=== PATIENT | female | born 1965 | race Caucasian/White ===

== ENCOUNTER → 2020-05-28 | Outpatient (CLI) | payer OTHER ==
[~2020-05-28] MED LIST: AMARYL2 M1 PO; METFORMIN HCL1000 MG PO; ONGLYZA5 MG PO; ZESTORETIC 10-1 EACH PO; ZOLOFT50 M1 PO
== END ==
LOC: LAB 10:57
PROVIDERS: ATTEND Specialist
DX: Z01.812 Encounter for preprocedural laboratory examination (principal); Z20.822 Contact with and (suspected) exposure to COVID-19

== ENCOUNTER → 2020-05-31 | Outpatient (CLI) | payer OTHER ==
[~2020-05-31] VITALS: Ht 170.2 cm; Wt 145.2 kg
--- NOTE | 2020-06-02 14:04 | P ---
[facility] [address] [place] [address] PROCEDURE REPORT Name: KRYS FIELDS Room #: REG RADHASmooth Gordon#: [id number] Admission: 05/31/20 Attend Phys: Sukh Singh Discharge: Date of : 65 Report #: [id number] THIS REPORT FOR: cc: Josef Arreola MD, Matthew B. MD McElhinney, Christian C. MD ~ DATE OF SERVICE: 05/31/2020 PROCEDURE PERFORMED: Colonoscopy with polypectomy and bleeding control. HISTORY OF PRESENT ILLNESS: The patient is a 54-year-old female who presents today for routine screening colonoscopy. No previous history of endoscopy, no family history of colon cancer. Denies any symptoms in general other than loose stools at times after her cholecystectomy. DESCRIPTION OF PROCEDURE: The risks and benefits of the procedure were explained to the patient, those risks including but not limited to bleeding, perforation and the risk of sedation. She understood these risks and gave informed consent. Sedation was given using propofol per anesthesia. Next, a digital rectal exam was initially performed, which was normal. Next, using a standard Olympus colonoscope, the scope was placed in the patient's anus and advanced under direct vision to the cecum. The overall prep was excellent. The cecum and ileocecal valve were normal in appearance. In the ascending colon, there was an 8 mm partially pedunculated polyp noted, this was removed by snare cautery. No active bleeding was noted; however, I did place a single endoclip after polypectomy. The transverse and descending colon were normal. A few scattered diverticula were noted in the sigmoid colon, no evidence of inflammation, otherwise normal. The rectal mucosa was normal. On retroflexion, small, no abnormalities were noted. The scope was then withdrawn and the procedure terminated. The patient tolerated the procedure well. IMPRESSION: 1. Ascending colon polyp. 2. Sigmoid diverticulosis. 3. Otherwise, normal colonoscopy. RECOMMENDATIONS: 1. Await biopsy results. 2. Repeat colonoscopy in [address] [address] PROCEDURE REPORT Name: KRYS FIELDS Room #: REG RUSH Gordon#: [id number] Admission: 05/31/20 Attend Phys: Sukh Singh Discharge: Date of : 65 Report #: [id number] Thank you for allowing me to participate in her care. <ELECTRONICALLY SIGNED> By: Sukh Reich MD 06/02/20 1404 [id number] 1832 Sukh Reich MD /nt
--- NOTE | 2020-06-05 11:07 | PATH ---
[facility] [address] [place] [address] PATHOLOGY RPT PROCEDURE Name: ARLEN KELLY Room #: REG RUSH Hull.#: [id number] Admission: 05/31/20 Date of : 65 Discharge: Report #: [id number] Path Case #: [id number] [facility] Accession Number: [id number] . 01 Material submitted: . colon - ASCENDING COLON POLYP. Modifiers: ascending . 01 Clinical history: . COLONOSCOPY SCREENING COLON CANCER . 02 Diagnosis: Polyp, ascending colon polyp, endoscopic biopsy: - Tubulovillous adenoma with focal high-grade dysplasia. - Margins free of high grade dysplasia. (IUV:tong; 06/03/2020) QMS 06/05/2020 1027 Local . 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 Alberto Powers who concurs with the diagnosis. . 02 Electronically signed: . Natasha Bell MD, Pathologist NPI- [id number] . 01 Gross description: . Received in formalin labeled "Arlen Kelly, ascending colon polyp" is a roche-brown nodular mucosal polyp measuring 1.0 x 0.7 x 0.6 cm. The margin is inked and the specimen is trisected and submitted in A1. ([facility]; 06/02/2020) [facility] 06/02/2020 1143 Local . 02 Pathologist provided ICD-10: D12.2 . 02 CPT . 410074 Specimen Comment: A courtesy copy of this report has been sent to [phone] Specimen Comment: [phone] Specimen Comment: Report sent to / DR MOREAU Performed at: [address] [id number] MD Alberto Powers MD Phone: [phone] Performed at: [address] [address] PATHOLOGY RPT PROCEDURE Name: ARLEN KELLY [id number] Admission: 05/31/20 Date of : 65 Discharge: Report #: [id number] Path Case #: [id number] [address] [id number] MD Natasha Bell MD Phone: [phone]
== END | disposition home or self-care (01) ==
LOC: GI 08:10
PROVIDERS: ATTEND Specialist
DX: R19.7 Diarrhea, unspecified (principal); D12.2 Benign neoplasm of ascending colon; K57.30 Diverticulosis of large intestine without perforation or abscess without bleeding; I10 Essential (primary) hypertension; E11.9 Type 2 diabetes mellitus without complications; F32.9 Major depressive disorder, single episode, unspecified; F17.210 Nicotine dependence, cigarettes, uncomplicated; Z98.890 Other specified postprocedural states; Z79.899 Other long term (current) drug therapy; Z90.49 Acquired absence of other specified parts of digestive tract
CPT/HCPCS: 62110; 62900